=== PATIENT | male | born 1950 | race Caucasian/White ===

== ENCOUNTER 2020-05-03 08:35 | Emergency (ER) | payer MEDICARE, BC ==
--- NOTE | 2020-05-03 09:16 | RAD ---
RADIOGRAPH CHEST 1 VIEW: DATE: 05/03/2020 HISTORY: 69-year-old male status post acute chest trauma due to fall due to syncope. Concern for aspiration. 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 There is no evidence of airspace density, pulmonary edema , or pneumothorax. The lateral costophrenic angles are not effaced. No cardiomegaly. Dual-lead left subclavian pacemaker. IMPRESSION: 1) No acute pulmonary findings. 2) ectasia of thoracic aorta.
[2020-05-03 09:25] LABS: #Eosinphils 0.2 thou/uL (0.0-0.7); #Lymphocytes 1.9 thou/uL (1.20-3.40); #Monocytes 0.8 thou/uL (0.11-0.59); %Basophils 0.2 % (0.0-1.0); %Eosinophils 2.3 % (0.0-10.0); %Lymphocytes 21.6 % (21.0-51.0); %Monocytes 8.5 % (0.0-10.0); %Neutrophils 67.4 % (42.0-75.0); Hemoglobin 16.2 g/dL (14.0-18.0); Mean Corpuscular HGB CONC 35.2 g/dL (32.0-36.0); Mean Corpuscular Hemoglobin 35.4 pg (27.0-31.0); Mean Platelet Volume 7.8 fL (7.4-10.4); Platelet Count 137 thou/uL (130-400); RBC Distribution Width 11.8 % (11.5-14.5); Red Blood Cell (RBC) Count 4.57 mill/uL (4.70-6.10); White Blood Cell (WBC) Count 8.9 thou/uL (4.8-10.8)
[2020-05-03] MEDS ORDERED: Acetaminophen 500 MG TAB ONE (09:31)
[2020-05-03 09:42] LABS: ALT (SGPT) 27 U/L (8-55); AST (SGOT) 40 U/L (5-34); Albumin 4.4 g/dL (3.4-4.8); Alkaline Phosphatase 52 U/L (40-110); Anion Gap 15 mmol/L (10-20); BUN (Urea Nitrogen) 9 mg/dL (8.4-25.7); Bilirubin, Total 0.7 mg/dL (0.2-1.2); CK (CPK) 396 U/L (30-200); Calc. Creatinine Clearance 0 mL/min (70-130); Calcium 9.3 mg/dL (7.8-10.44); Carbon Dioxide 25 mmol/L (23-31); Chloride 96 mmol/L (98-107); Estimated GFR-MDRD 82; Glucose 85 mg/dL (80-115); Potassium 3.9 mmol/L (3.5-5.1); Protein, Total 7.4 g/dL (5.8-8.1); Sodium 132 mmol/L (136-145)
--- NOTE | 2020-05-03 09:48 | CT ---
Exam: CT brain PROVIDED CLINICAL HISTORY: Fall COMPARISON: None FINDINGS: The ventricular system is normal in size and morphology. No evidence for intracranial hemorrhage or mass effect. There is left periorbital soft tissue swelling, without evidence for fracture. IMPRESSION: No evidence for intracranial hemorrhage or mass effect.
--- NOTE | 2020-05-03 09:57 | CT ---
EXAM: CT Facial Bones WO Con PROVIDED CLINICAL HISTORY: Trauma COMPARISON: None FINDINGS: There is no evidence for fracture. There is conspicuous left premaxillary and periorbital soft tissue hematoma. The paranasal sinuses are free of significant opacity. The globes and other orbital contents appear normal. IMPRESSION: No evidence for fracture.
--- NOTE | 2020-05-03 10:13 | CT ---
CT cervical spine noncontrast HISTORY: Fall. Injury. COMPARISON: Neck CT 06/28/2005. FINDINGS: Vertebral body heights are maintained. No acute fracture or dislocation. Cervicothoracic ju nction is intact. Anterior operative fixation with metallic hardware at the C3-4-5 levels. No evidence of hardware comp lication. Multilevel disc space narrowing and prominent osteophytosis. Posterior central disc protrusion at the C2-3 level effaces the ventral aspect of the spinal cord whi ch is narrowed to 0.6 cm. Centered within the right L2 inferior facet is a well-circumscribed oval lucency that is 1.1 cm x 0.6 cm greatest diameters. There is subtle suggestion of sclerotic borders. The lesion was not present on the prior neck CT from 2004. More typical Schmorl's nodes are present within the C7 vertebral body. Prominent calcification throughout the arterial structures. IMPRESSION : No acute osseous abnormalities are demonstrated. Prominent posterior central disc protrusion at the C2-3 level. Acuity uncertain. If neurologic sympto ms are present, please consider immobilization and immediate MRI evaluation. Otherwise, nonemergent MRI should be considered. Small lytic lesion within the right C2 posterior elements may represent an intraosseous ganglion. Giv en the interval appearance and characteristics, however, further evaluation is warranted. Please consider non-emergent MRI cervical spine, WITHOUT AND WITH GADOLINIUM contrast, for better characteri zation. Atherosclerosis.
== END 2020-05-03 11:10 | disposition home or self-care (01) ==
LOC: ERS 08:35
DX: S00.83XA Contusion of other part of head, initial encounter (principal); R55 Syncope and collapse; E03.9 Hypothyroidism, unspecified; I10 Essential (primary) hypertension; Z79.899 Other long term (current) drug therapy; W19.XXXA Unspecified fall, initial encounter
CPT/HCPCS: 70450; 70486; 71045; 72125; 80053; 82550; 84484; 85025; 93005; 94760